=== PATIENT | male | born 1985 | race African-American/Black ===

== ENCOUNTER 2016-08-19 18:29 | Inpatient (IN) | payer MEDICARE, OTHER ==
--- NOTE | ~2016-08-19 | EKG ---
PATIENT: JOSE L ACOSTA UNIT #: [id number] Ventricular Rate: 94 BPM Atrial Rate: 94 BPM P-R Interval: 144 ms QRS Duration: 84 ms Q-T Interval: 322 ms QTC Calculation(Bezet): 402 ms P [place]: 32 degrees Calculated R [place]: 3 degrees Calculated T [place]: 53 degrees Diagnosis Line: Normal sinus rhythm Diagnosis Line: Normal ECG Diagnosis Line: When compared with ECG of 20-AUG-2016 08:36, Diagnosis Line: Questionable change in QRS axis Diagnosis Line: Non-specific change in ST segment in Inferior Diagnosis Line: leads Diagnosis Line: T wave inversion no longer evident in Inferior Diagnosis Line: leads Diagnosis Line: Confirmed by JOHN AGUILAR MD ([id number]) on 08/22/2016 Diagnosis Line: 7:04:28 PM INTERPRETING MD: JEFF GARCIA
--- NOTE | ~2016-08-19 | EE ---
Unit #: [id number] #: [id number] Patient: JOSE L ACOSTA [id number] [address] [address] [id number] I MR#: [id number] NAME: JOSE L ACOSTA : 1985 SEX: M STUDY DATE/TIME: 08/20/2016 UNIT: C3A PCU ROOM: [address] [place] [address] DESCRIPTION: EEG Attending Physician: Jenna Carson M.D. Referring Physician: Meri Reynolds M.D. Primary Care Physician: No Primary Care Physician NEURODIAGNOSTICS REPORT EXAM EEG REASON FOR THE STUDY Seizures. EEG DESCRIPTION This is an inpatient, digitally recorded, multi-montage adult EEG with leads placed according to the International 10-20 system. Hyperventilation and photic stimulation were attempted. With the patient fully aroused there is 9 to 10 Hz posterior dominant alpha rhythm which is symmetric and attenuates with eyes opening. The patient did become drowsy and later on stage 2 sleep was seen. No clearcut interictal discharges or clinical events were seen. IMPRESSION This is essentially a normal adult awake and asleep EEG. An EEG like this does not rule out epilepsy. Clinical correlation is recommended. Dictated by... Alysia Agarwal/tiffanie TD: 08/20/2016 22:56 JOB #: [id number] NEURODIAGNOSTICS REPORT Page 1 of 1 X Meri Reynolds MD NEURODIAGNOSTICS REPORT
--- NOTE | ~2016-08-19 | CR72 ---
[facility] A Service of [facility] RADIOLOGY TEXT RESULTS PATIENT: JOSE L ACOSTA LOCATION: [facility] 36611-07 : 83 UNIT #: [id number] AGE: [address]: Jenna Carson MD SEX: M ORDER DR: [id number] [facility] [address] [place], [place] [address] [id number] E MR#: [id number] Acc #: [id number] NAME: JOSE L ACOSTA : 1985 SEX: M STUDY DATE/TIME: 08/19/2016 18:26 UNIT: [facility] ROOM: STUDY DESCRIPTION: CR Chest Single View Portable Attending Physician: Phu Pascal M.D. Ordering Physician: Ed Delio Allen M.D. Primary Care Physician: Primary Care Physician No MEDICAL IMAGING REPORT This report is preliminary unless electronic signature is present EXAM Portable chest HISTORY Seizure today with weakness. TECHNIQUE Single view of the chest was obtained with no priors available for comparison. FINDINGS Severe kyphoscoliosis is seen with previous thoracic freddy fixation. The lungs are clear. The heart and mediastinum have a normal configuration otherwise, and the vascular pattern is normal. IMPRESSION No active pulmonary disease. Kyphoscoliosis with previous thoracic fusion. Dictated by... Ayan Wood M.D. THIS IS AN ELECTRONICALLY VERIFIED REPORT Ayan Wood M.D. at 08/20/2016 8:03 AM RLF/carla TD: 08/19/2016 23:46 JOB #: [id number] MEDICAL IMAGING REPORT Page 1 of 1 COPY
--- NOTE | ~2016-08-19 | CO ---
Unit #: [id number] #: [id number] Patient: JOSE L ACOSTA [id number] [facility] [address] [place], [place] [address] [id number] I MR#: [id number] NAME: JOSE L ACOSTA ROOM: 326 Age: 31 Sex: M Admission Date: 08/19/2016 : 1985 Attending Physician: Jenna Carson M.D. Primary Care Physician: No Primary Care Physician Requesting Physician: Naomi Dyer M.D. Consultation Date: 08/20/2016 CONSULTATION REPORT REASON FOR CONSULTATION Seizure. PATIENT IDENTIFICATION This is a 31-year-old, right-handed, -Australian male evaluated in the ER, room T2 at [facility]. SOURCE OF INFORMATION Obtained from the patient, the patient's family via telephone, as well as the medical records. HISTORY OF PRESENT ILLNESS This is a 31-year-old, right-handed, -Australian male with a past medical history of mild MR, intermittent explosive disorder, and hypertension, who presented to [facility] with generalized new onset seizure activity. The patient was apparently at home with his respite care worker whenever he was noted to have a generalized tonic clonic seizure event. He lost continence of urine. He had a tongue bite and was foaming at the mouth. Symptoms apparently resolved on their own and the respite care worker called the patient's caregiver who instructed that EMS be called. The patient was brought to the ER via EMS and was noted in the ER to have another generalized event. Dr. Reynolds was called and the patient was placed on Vimpat. The patient also received a dose of Ativan. The patient has had no further events since his initial event here and again he has had two generalized tonic clonic seizure events, one witnessed at home and one witnessed in the ED. He had a head CT done without contrast in the ED, that shows a 3.6 cm area of hypodensity within the left basal ganglia concerning for an evolving infarct and no evidence of significant mass effect or edema. No hemorrhage. The patient is not complaining of any symptoms of stroke, though at the time of my evaluation he is sleeping and is difficult to arouse. His EKG showed normal sinus rhythm. He takes Klonopin at home and his family states that he takes all of his medications without difficulty and has not had any nausea or vomiting. Does not have any history of pocketing; however, his urine tox screen is negative for benzodiazepine. His urinalysis does show some abnormalities but moderate squamous cells and negative for bacteria. Cultures not indicated. Otherwise his BNP is essentially unremarkable. His glucose was 91 on arrival and his CBC was unremarkable on arrival. PAST MEDICAL HISTORY 1. Hypertension. 2. Mild MR. 3. Intermittent explosive disorder. Unit #: [id number] #: [id number] Patient: JOSE L ACOSTA 4. Scoliosis. 5. Back surgery for scoliosis. ALLERGIES No known drug allergies. HOME MEDICATIONS As per med rec and include: 1. Calcium carbonate 500 mg p.o. t.i.d. 2. Seroquel 200 mg 1 1/2 tablet at noon and 2 1/2 tablets at night. 3. Clonidine 0.1 mg p.o. b.i.d. 4. Vitamin D 1,000 units p.o. daily. 5. Clonazepam 0.5 mg p.o. t.i.d. 6. Carbamazepine 200 mg p.o. b.i.d. FAMILY HISTORY Documented in the medical record as positive for malignancy. The nurse was able to speak with the patient's brother over the phone and he states that his mother is but when she was living she was diagnosed at the age of about 40 with epilepsy. SOCIAL HISTORY The patient lives with a caregiver, his brother, Tye, is his next-of-kin and guardian. He has a caregiver that works in the home and he has respite workers that check on him and help provide care. REVIEW OF SYSTEMS The patient is lethargic, somewhat avoidant upon my evaluation but is appropriate otherwise. He denies any headache currently. He states he is hungry. He denies any complaints upon review of systems otherwise. 14 point review of systems was attempted. PHYSICAL EXAMINATION VITAL SIGNS: Temperature 98.7. He has been afebrile, pulse 98, respirations 20, blood pressure 118/74, blood pressure in the ER on arrival is 143/83, oxygen saturation 98% on room air. Height 5'9", weight 167 pounds, BMI 24. NEUROLOGIC EXAM: He is resting in bed comfortably in no apparent distress. He is sleeping. He is arousable with some difficulty. His family states that this is not unusual for him, that he is a deep sleeper. He, when awake, does follow commands consistently. He can name and identify appropriately. His speech is clear. He can name and identify and does not appear to have any aphasia or apraxia. CRANIAL NERVE EXAM: He responds to threats in the primary and peripheral visual broussard. Eyes are conjugate without ptosis or nystagmus. Extraocular movements are intact. Sensation of the face and scalp appears to be intact but is limited as far as his cooperation on this portion of the exam. Strength of muscles of facial expression appear to be unremarkable and equal. Hearing is intact to voice. Tongue is midline, unable to visualize uvula and palate. Head turning and shoulder shrug are unremarkable. Neck supple. MOTOR EXAM: He demonstrates normal bulk and tone. Strength is equal, 5- out of 5 in the extremities. SENSORY EXAM: It is difficult as the patient is lethargic. GAIT AND ROMBERG: Deferred. REFLEXES: 1 out of 4. Toes are equivocal. COORDINATION: No past pointing. Unit #: [id number] #: [id number] Patient: JOSE L ACOSTA DIAGNOSTIC STUDIES IMAGING STUDIES: CT of the head please see above. Chest x-ray on 08/19/2016 - impression per radiology report, no active pulmonary disease. Kyphoscoliosis with previous thoracic fusion. LABORATORY STUDIES: TSH 0.43, other labs are as per chart and have been reviewed. Please see above for discussion of labs. IMPRESSION 1. New onset generalized seizure x2, questionable etiology. 2. Abnormal CT of the head, questionable involving left basal ganglia infarct, likely incidental. 3. Mild MR. 4. Hypertension. PLAN I was able to speak with C.J. at the number provided. I attempted to call his brother but was unable to reach him. The nurse did speak with the brother and reports he is back to his baseline. He has apparently not missed any of his medication. However, it is interesting to note that his urine tox screen is negative for benzodiazepines and he takes clonazepam 0.5 mg t.i.d. I am told that he has not had any nausea or vomiting, no pocketing of his meds and has not run out of his mediations. Regardless, with two recurrent generalized seizure events with no known etiology, we must treat these as epileptic events and will continue Vimpat, which has been started on the patient. Vimpat is likely a better consideration given his history of intermittent explosive disorder. Will monitor him closely. He has no known prior history of seizures. It is important to note that his mother was diagnosed with epilepsy at the age of 38 to 40. We will follow him closely. Will check an MRI of the brain for seizure and stroke protocol given his abnormal CT and presentation. Will check an MR angiogram of the head and neck. He has been started on aspirin as well. Further recommendations will be made pending workup and further clinical course. I have discussed the case with Dr. Reynolds who has seen the patient as well and presents as above. Dictated by... Rosalia Parada/erlinda TD: 08/21/2016 05:20 JOB #: [id number] CONSULTATION REPORT Page 1 of 1 X Naina Nascimento APRN X CONSULTATION REPORT
--- NOTE | ~2016-08-19 | MR133 ---
[facility] A Service of [facility] & [facility] RADIOLOGY TEXT RESULTS PATIENT: JOSE L ACOSTA LOCATION: [facility] 326-01 : 83 UNIT #: [id number] AGE: [address]: Jenna Carson MD SEX: M ORDER DR: [id number] [facility] [address] [place], [place] [address] [id number] I MR#: [id number] Acc #: [id number] NAME: JOSE L ACOSTA : 1985 SEX: M STUDY DATE/TIME: 08/20/2016 15:07 UNIT: [place] [facility] ROOM: [address]6932 STUDY DESCRIPTION: MR MRA Neck WWo Contrast Attending Physician: Jenna Carson M.D. Ordering Physician: Naina Nascimento A.P.R.N. Primary Care Physician: No Primary Care Physician MRI CENTER REPORT This report is preliminary unless electronic signature is present. EXAM MR angiogram of the neck with and without contrast dated 08/20/2016. COMPARISON MRI and MRA head dated 08/20/2016. HISTORY New onset of seizures on 08/19/2016. Mentally challenged. FINDINGS Source and reconstruction MIP images of the neck arteries were obtained with and without contrast. GFR measured greater than 60. 15 mL of MultiHance was administered intravenously. Three-vessel aortic arch is seen. The bilateral common, internal and external carotid arteries demonstrate expected course, caliber and flow. No focal stenosis, dissection or aneurysm is seen. Bilateral vertebral arteries are codominant. They are grossly unremarkable. IMPRESSION No hemodynamically flow-limiting significant stenosis in bilateral internal carotid artery bulbs per NASCET criteria. These findings were discussed with [place] ER physician Dr. Segura at 04:15 p.m. on 08/20/2016. Dictated by... Kate Caicedo M.D. THIS IS AN ELECTRONICALLY VERIFIED REPORT Kate Caicedo M.D. at 08/22/2016 4:57 PM CPR/rnr TD: 08/20/2016 18:44 JOB #: [id number] [facility] A Service of [facility] & [facility] RADIOLOGY TEXT RESULTS PATIENT: JOSE L ACOSTA LOCATION: A 326-01 : 83 UNIT #: [id number] AGE: [address]: Jenna Carson MD SEX: M ORDER DR: MRI CENTER REPORT Page 1 of 1 COPY
--- NOTE | ~2016-08-19 | MR122 ---
[facility] A Service of [facility] RADIOLOGY TEXT RESULTS PATIENT: JOSE L ACOSTA LOCATION: C3[facility] PC 326-01 : [birth year] UNIT #: [id number] AGE: [address]: Jenna Carson MD SEX: M ORDER DR: [id number] [facility] [address] [place], [place] [address] [id number] I MR#: [id number] Acc #: [id number] NAME: JOSE L ACOSTA : 1985 SEX: M STUDY DATE/TIME: 08/20/2016 14:53 [facility] RO[facility]: 06215 STUDY DESCRIPTION: MR MRA Head Wo Contrast Attending Physician: Jenna Carson M.D. Ordering Physician: Naina Nascimento A.P.R.N. Primary Care Physician: No Primary Care Physician MRI CENTER REPORT This report is preliminary unless electronic signature is present. EXAM MR angiogram of the head without contrast. DATE OF EXAM 08/20/2016 COMPARISON MRA neck and MRI brain dated 08/20/2016. HISTORY Seizure on 08/19/2016, mentally challenged. New onset of seizures. FINDINGS Source and 3-D reconstruction MIP images of the [place] of [place] was obtained without contrast. Bilateral intracranial internal carotid arteries, anterior and middle cerebral arteries are within normal limits. The right PCOM is present. Tiny ACOM cannot be excluded. Well-defined left PCOM is not seen. Basilar artery, bilateral posterior cerebral arteries are unremarkable. The distal right P3 and P4 segments are asymmetrically smaller when compared to the left. Bilateral vertebral arteries decrease in caliber as they extend to the vertebrobasilar junction. No aneurysm or AVM. IMPRESSION 1. No aneurysm or AVM. 2. There is decrease in caliber of bilateral vertebral arteries as they extend towards the vertebrobasilar junction. Given the young age it could be related to a congenital appearance rather than due to atherosclerotic disease. Nonspecific. Dictated by... Kate Caicedo M.D. [facility] A Service of [facility] RADIOLOGY TEXT RESULTS PATIENT: JOSE L ACOSTA LOCATION: C3A PC 326-01 : [birth year] UNIT #: [id number] AGE: [address]: Jenna Carson MD SEX: M ORDER DR: THIS IS AN ELECTRONICALLY VERIFIED REPORT Kate Caicedo M.D. at 08/22/2016 4:57 PM CPR/jt TD: 08/20/2016 18:33 JOB #: [id number] MRI CENTER REPORT Page 1 of 1 COPY
--- NOTE | ~2016-08-19 | MR17 ---
[facility] A Service of [facility] RADIOLOGY TEXT RESULTS PATIENT: JOSE L ACOSTA LOCATION: C3A 326-01 : [birth year] UNIT #: [id number] AGE: [address]: Jenna Carson MD SEX: M ORDER DR: [id number] [facility] [address] [place], [place] [address] [id number] I MR#: [id number] Acc #: [id number] NAME: JOSE L ACOSTA : 1985 SEX: M STUDY DATE/TIME: 08/20/2016 14:24 UNIT: [facility] ROOM: 67320 STUDY DESCRIPTION: MR Brain WWo Contrast Attending Physician: Jenna Carson M.D. Ordering Physician: Naina Nascimento A.P.R.N. Primary Care Physician: No Primary Care Physician MRI CENTER REPORT This report is preliminary unless electronic signature is present. EXAM MRI of the brain, with and without contrast, 08/20/2016. COMPARISON CT head without contrast, 08/19/2016. HISTORY Patient had seizure on 08/19/2016; mentally challenged. Had an abnormality on CT head. TECHNIQUE Multisequence, multiplanar imaging of the brain was obtained with and without contrast. GFR measured greater than 50. 15 mL of MultiHance was administered intravenously. FINDINGS There is no acute stroke, hydrocephalus, midline shift. There is increased T2 signal noted within the left deep mcdowell nucleus. It has a tear-shape and measures 2.4 x 3.8 cm, with focal 3-mm round increased T2 signal lesion within its center. This smaller component has peripheral rim of susceptibility artifact, likely relating to hemosiderin deposition or calcification. It also demonstrates peripheral rim of enhancement. No hydrocephalus or midline shift is seen. There is an oval large CSF signal lesion lateral to the right anterior commissure measuring 1.3 cm. It is probably a large perivascular Virchow-Benjamin space. 1.5-cm enhancing mass is noted in the right parietal bone with some enlargement. No underlying intraparenchymal components. Motion artifact is significantly noted in the postcontrast sequence, and the patient would not complete the study; hence, postcontrast coronal sequence was not obtained. Thick slices through the sella with the pituitary gland, pineal region, upper cervical spine, and internal auditory canals with the inner ear [facility] A Service of [facility] RADIOLOGY TEXT RESULTS PATIENT: JOSE L ACOSTA LOCATION: C3A 326-01 : [birth year] UNIT #: [id number] AGE: [address]: Jenna Carson MD SEX: M ORDER DR: structures do not demonstrate any significant abnormality. There is mild S-shaped nasal septal deviation with mild paranasal sinus mucosal thickening. Imaged orbits with the ocular structures and mastoids are unremarkable. IMPRESSION 1. Corresponding to the CT abnormality, there is an oval area of increased T2 signal in the inferior aspect of the left basal ganglia, abutting the anterior commissure anteriorly and involving genu and posterior limb of the left internal capsule. Superiorly, it extends toward the left frontal sanchez radiata. It has a focal 3-mm component within its center, with likely peripheral calcification or hemosiderin deposition with mild peripheral rim of enhancement. There is no restricted diffusion noted with it. It does not have the typical appearance of an acute stroke. Given the appearance of hemorrhage in the center, a vascular anomaly like cavernous hemangioma, with edema and hemorrhage, is in the differential consideration, along with other hemorrhagic small mass lesions. It does not have the typical appearance of an infection. Follow-up study is suggested in 1-3 months or earlier, depending on worsening of symptoms. 2. There is an enhancing bony mass noted in the right parietal bone. It has a thick, sclerotic border in CT. Correlation with old imaging or bone scan is suggested. It could represent benign lesion; however, malignant lesions like metastases or multiple myeloma cannot be completely excluded in the appropriate clinical setting. 3. Findings were discussed with Dr. Segura of [facility] ER at 4:15 p.m. on 08/20/2016. Dictated by.Sergio Caicedo M.D. THIS IS AN ELECTRONICALLY VERIFIED REPORT Kate Caicedo M.D. at 08/22/2016 4:57 PM CPR/nicolás TD: 08/20/2016 18:41 JOB #: [id number] MRI CENTER REPORT Page 1 of 1 COPY
--- NOTE | ~2016-08-19 | EKG ---
PATIENT: JOSE L ACOSTA UNIT #: [id number] Ventricular Rate: 94 BPM Atrial Rate: 94 BPM P-R Interval: 146 ms QRS Duration: 90 ms Q-T Interval: 330 ms QTC Calculation(Bezet): 412 ms P [place]: 52 degrees Calculated R [place]: 93 degrees Calculated T [place]: 6 degrees Diagnosis Line: Normal sinus rhythm Diagnosis Line: Rightward axis Diagnosis Line: Pulmonary disease pattern Diagnosis Line: Abnormal ECG Diagnosis Line: When compared with ECG of 19-AUG-2016 18:39, Diagnosis Line: deep s waves in V4-V6 are new Diagnosis Line: Confirmed by JOHN AGUILAR MD ([id number]) on 08/20/2016 Diagnosis Line: 10:41:46 PM INTERPRETING MD: JEFF GARCIA
--- NOTE | ~2016-08-19 | DS ---
Unit #: [id number] #: [id number] Patient: JOSE L ACOSTA [id number] [address] [address] [id number] MR#: [id number] NAME: JOSE L ACOSTA ROOM: 326 Age: 31 Sex: M Admission Date: 08/19/2016 : 1985 Discharge Date: 08/21/2016 Attending Physician: Jenna Carson M.D. Primary Care Physician: No Primary Care Physician DISCHARGE SUMMARY PRINCIPAL DIAGNOSES 1. New onset generalized seizure x2 consistent with underlying epilepsy. 2. Hyperlipidemia, newly diagnosed, with low-density lipoprotein (LDL) of 172. 3. Hypertension. 4. Intermittent explosive disorder. 5. Mental retardation. 6. 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 7. Gastroesophageal reflux disease. CONSULTANTS Dr. Reynolds, neurology. DIAGNOSTIC STUDIES IMAGING: Chest x-ray on August 19, [address] of the head without contrast on August 19, 2016 with a 3.6 cm area of hyperdensity in the left basal ganglia. No mass effect or edema. MRI of the brain with and without contrast on August 20, 2016 with no evidence of acute stroke. There is an oval area of increased T2 signal in the inferior aspect of the left basal ganglia extending toward the left frontal sanchez radiata. It appears to be most consistent with a vascular abnormality. It is not consistent with infection. Bony mass in the right parietal lobe noted. MRA of head and neck without any significant stenosis per NASCET criteria. 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 CLINICAL HISTORY AND HOSPITAL COURSE Mr. Acosta is a 31-year-old male who presented to the emergency department with witnessed seizure. Please refer to H and P for further details. CT scan done in the emergency department revealed questionable left basal ganglia abnormality. The patient did not have any symptoms of stroke, however. The patient was subsequently admitted. The patient was started on empiric Vimpat and has had no further seizure activity during hospitalization. EEG was done and did not reveal any seizure-like activity. I will note the patient is reportedly on Klonopin on a p.r.n. basis; however, urine drug screen was negative. It is unclear to me how often the patient takes Klonopin or if it is even prescribed. However, given 2 events, we are going to treat empirically; particularly given the patient has a family history of epilepsy. The patient will be maintained on Vimpat. Unit #: [id number] #: [id number] Patient: JOSE L ACOSTA Due to abnormal CT scan the patient underwent MRI of the brain but does not reveal any acute stroke. It is felt he likely has a vascular abnormality and can proceed with repeat MRI in 3 months to ensure that this is stable. He was also found to have hyperlipidemia and was placed on statin therapy. The patient has, otherwise, remained clinically stable. He did have complaints of chest pain today but has been eating well. EKG is unremarkable, and troponin is also negative. I suspect chest pain is secondary to reflux. He will be discharged home today. DISCHARGE CONDITION Stable. DISCHARGE STATUS Discharge to home. DISCHARGE MEDICATIONS 1. Vimpat 100 mg b.i.d. 2. Lipitor 40 mg at bedtime. 3. Tegretol 200 mg b.i.d. 4. Seroquel 100 mg at noon and 500 mg at bedtime. 5. Klonopin 0.5 mg p.o. t.i.d. p.r.n. anxiety. 6. Catapres 0.1 mg b.i.d. 7. Tums 500 mg t.i.d. 8. Vitamin D 1,000 units p.o. daily. DISCHARGE INSTRUCTIONS Patient instructed to follow a heart healthy, low-calorie diet. He can increase his activity as tolerated. FOLLOW-UP 1. Patient will follow up with Dr. Huan Soria of outpatient neurology in approximately 4 weeks and can undergo repeat MRI of the brain to ensure stability of presumed vascular lesion. 2. He can follow up with his primary care provider in 4 weeks, as well. Dictated by... Jenna Carson M.D. ALEXANDER/caleb TD: 08/22/2016 07:52 JOB #: [id number] Unit #: [id number] #: [id number] Patient: JOSE L ACOSTA DISCHARGE SUMMARY Page 1 of 1 X Jenna Carson MD X DISCHARGE SUMMARY
--- NOTE | ~2016-08-19 | CT71 ---
[facility] A Service of [facility] RADIOLOGY TEXT RESULTS PATIENT: JOSE L ACOSTA LOCATION: [facility] : 83 UNIT #: [id number] AGE: [address]: Jenna Carson MD SEX: M ORDER DR: [id number] [address] [address] [id number] E MR#: [id number] Acc #: [id number] NAME: JOSE L ACOSTA : 1985 SEX: M STUDY DATE/TIME: 08/19/2016 19:43 UNIT: ANASTASIYA ROOM: STUDY DESCRIPTION: CT Head Wo Contrast Attending Physician: Phu Pascal M.D. Ordering Physician: Steven Allen M.D. Primary Care Physician: Primary Care Physician No MEDICAL IMAGING REPORT This report is preliminary unless electronic signature is present EXAM CT head INDICATIONS Seizure for [address] of the head without contrast. This CT exam was performed with one or more of the following radiation dose reduction techniques: Automatic exposure control, adjustment of mA and/or kV according to patient size, and iterative reconstruction. COMPARISON None available. FINDINGS There is an area of increased hyperdensity within the left basal ganglia measuring 3.6 x 2 cm. There is no associated mass effect or edema. Left lateral ventricle is normal in size and configuration. There is a prominent Virchow-Benjamin space in the right medial temporal lobe. No extraaxial collections. No acute osseous abnormalities. IMPRESSION 1. 3.6 cm area of hyperdensity within the left basal ganglia concerning for a subacute infarct. Consider further evaluation with an MRI to confirm. 2. No evidence of significant mass effect or edema. No hemorrhage. This finding was called to the ER at 20:00 on 08/19/2016. [facility] A Service of [facility] RADIOLOGY TEXT RESULTS PATIENT: JOSE L ACOSTA LOCATION: CEDOF : 83 UNIT #: [id number] AGE: [address]: Jenna Carson MD SEX: M ORDER DR: Dictated by... Edward Saldaña M.D. THIS IS AN ELECTRONICALLY VERIFIED REPORT Edward Saldaña M.D. at 08/20/2016 3:05 PM RPC/carla TD: 08/20/2016 00:40 JOB #: [id number] MEDICAL IMAGING REPORT Page 1 of 1 COPY
--- NOTE | ~2016-08-19 | EKG ---
PATIENT: JOSE L ACOSTA UNIT #: [id number] Ventricular Rate: 84 BPM Atrial Rate: 84 BPM P-R Interval: 158 ms QRS Duration: 92 ms Q-T Interval: 344 ms QTC Calculation(Bezet): 406 ms P Prue: 38 degrees Calculated R Prue: 47 degrees Calculated T Prue: 12 degrees Diagnosis Line: Normal sinus rhythm Diagnosis Line: Normal ECG Diagnosis Line: No previous ECGs available Diagnosis Line: Confirmed by JOHN AGUILAR MD ([id number]) on 08/19/2016 Diagnosis Line: 11:43:34 PM INTERPRETING MD: JEFF GARCIA
--- NOTE | ~2016-08-19 | HP ---
Unit #: [id number] #: [id number] Patient: JOSE L ACOSTA [id number] [address] [address] [id number] E MR#: [id number] NAME: JOSE L ACOSTA ROOM: Age: 31 Sex: M Admission Date: 08/19/2016 : 1985 Attending Physician: Phu Pascal M.D. Primary Care Physician: Primary Care Physician No HISTORY AND PHYSICAL CHIEF COMPLAINT New-onset seizure. HISTORY OF PRESENT ILLNESS This pleasant 31-year-old male with mild mental retardation, intermittent explosive disorder, essential hypertension, is admitted for new-onset seizure. The patient was in his usual state of health until today. After eating, he developed a generalized seizure. He was brought to this emergency department where he was initially a bit confused. In the ER, he had a second witnessed generalized seizure. He was given 2 mg of IV Ativan. The case was discussed with Dr. Reynolds and the patient was given 100 mg of IV Vimpat. His head CT shows a 3.6 cm left basal ganglia abnormality, possibly representing a subacute infarct. The patient is experiencing a headache today after the seizures. Again, no previous history of seizures. The patient does admit to urinating on himself after the seizure. PAST MEDICAL HISTORY 1. Hypertension. 2. Intermittent explosive disorder. 3. Scoliosis. 4. Mild mental retardation. 5. Back surgery. ALLERGIES None. HOME MEDICATIONS 1. Seroquel 200 mg one and one-half tablets at noon. 2. Seroquel 200 mg two and one-half tablets at bedtime. 3. Clonidine 0.1 mg b.i.d. 4. Vitamin D 1000 units daily. 5. Klonopin 0.5 mg t.i.d. 6. Tegretol 200 mg b.i.d. 7. Tums 500 mg t.i.d. p.r.n. SOCIAL HISTORY The patient lives with a caregiver. He is a lifelong nonsmoker. He does not drink alcohol. FAMILY HISTORY Malignancy. Unit #: [id number] #: [id number] Patient: JOSE L ACOSTA REVIEW OF SYSTEMS Difficult to obtain as patient himself does have some mild intellectual deficits. PHYSICAL EXAMINATION VITAL SIGNS: Temperature 98, pulse 115, respirations 16, blood pressure 143/83, O2 saturation 96% on room air. GENERAL: Pleasant, 31-year-old male currently in no acute distress. HEENT: Eyes PERRLA. Extraocular muscles are intact. Pharynx benign. Tongue is somewhat large. NECK: Supple without adenopathy or thyromegaly. CHEST: Clear. HEART: Normal S1, S2 without S3, S4 or murmur. ABDOMEN: Bowel sounds are present. No hepatosplenomegaly, tenderness or masses. EXTREMITIES: Without clubbing, cyanosis, or edema. Pedal pulses are present. NEUROLOGIC: Awake, alert, oriented to person. Cranial nerves are intact. Equal strength throughout. DIAGNOSTIC STUDIES LABORATORY: Hematocrit 43.3, normal white count and platelet count. SMA-12 chloride 98, protein 9.4, normal glucose. Urine toxicology screen positive for TCA. Urinalysis 2+ protein otherwise negative. IMAGING: Head CT left basal ganglia 3.6 cm abnormality which may represent a subacute infarct. Chest x-ray no acute disease. Kyphoscoliosis. CARDIOVASCULAR: EKG normal sinus rhythm rate 84, normal appearing. ASSESSMENT 1. New-onset seizure. Head CT is possibly abnormal. 2. Mild mental retardation. 3. Intermittent explosive disorder. 4. Essential hypertension. 5. Scoliosis requiring surgery. PLAN 1. The case was discussed between the ER physician and Dr. Reynolds. MRI, EEG, Vimpat. 2. Aspirin for now. 3. IV fluids and continue usual medicines. 4. SCDs for DVT prophylaxis. 5. Repeat labs in the morning. Dictated by Naomi Dyer M.D. AML/cs TD: 08/19/2016 23:19 JOB #: [id number] Unit #: [id number] #: [id number] Patient: JOSE L ACOSTA HISTORY AND PHYSICAL Page 1 of 1 X Naomi Dyer MD HISTORY AND PHYSICAL
[2016-08-19 19:02] LABS: BASOPHIL% 0.2 % (0-2.5); EOSINOPHIL% 0.3 % (0.0-7.0); HEMATOCRIT 43.3 % (38.0-50.0); HEMOGLOBIN 14.8 gm/dL (13.0-16.0); LYMPHOCYTE# 1.3 X10e3 (1.0-3.5); LYMPHOCYTE% 20.3 % (17.0-45.0); MEAN CELL VOLUME 87.7 FL (83-96); MEAN CORPUSCULAR HGB CONC 34.2 g/dL (30-36); MEAN PLATELET VOLUME 7.8 FL (6.5-11.5); MONOCYTE# 0.7 X10e3 (0-1.0); NEUTROPHIL# 4.5 X10e3 (1.5-7.1); NEUTROPHIL% 68.2 % (40-75); PLATELET COUNT 246 X10e3 (140-420); RED BLOOD COUNT 4.94 X10e (3.90-5.60); RED CELL DISTRIBUTION WIDTH 13.5 % (11.0-15.5); WHITE BLOOD COUNT 6.6 X10e3 (4.0-10.5)
[2016-08-19 19:06] LABS: DIFF IND NO
[2016-08-19 19:07] LABS: URINE SOURCE CLEAN CATCH
[2016-08-19 19:12] LABS: URINE APPEARANCE CLOUDY; URINE BILIRUBIN NEG (NEG); URINE BLOOD 2+ (NEG); URINE COLOR YELLOW; URINE GLUCOSE NEG (NEG); URINE KETONE NEG (NEG); URINE LEUKOCYTE ESTERASE NEG (NEG); URINE NITRATE NEG (NEG); URINE PROTEIN 2+ (NEG); URINE SPECIFIC GRAVITY 1.016 (1.003-1.035)
[2016-08-19 19:14] LABS: URINE BACTERIA AUWI NEG (NEGATIVE); URINE SQUAMOUS EPITHELIAL CELL MOD /[HPF]; UWBCS1 AUWI 0-2 (0-5)
[2016-08-19] MEDS ORDERED: SEROQUEL PO (19:23)
[2016-08-19] MEDS ORDERED: CATAPRES0.1 MG PO (19:23)
[2016-08-19] MEDS ORDERED: KLONOPIN0.5 MG PO (19:24)
[2016-08-19] MEDS ORDERED: TEGRETOL PO (19:24)
[2016-08-19] MEDS ORDERED: VITAMIN D1000 UNIT PO (19:24)
[2016-08-19] MEDS ORDERED: TUMS500 MG PO (19:25)
[2016-08-19 19:26] LABS: ALBUMIN SERUM 4.8 g/dL (3.5-5.0); BILIRUBIN, DIRECT 0.1 mg/dL (0.0-0.2); BILIRUBIN,INDIRECT 0.6 mg/dL (0.0-0.9); BILIRUBIN,TOTAL 0.7 mg/dL (0.2-2.0); BUN/CREATININE RATIO 11.11; CALCIUM SERUM 9.5 mg/dL (8.4-10.2); CREATININE SERUM 0.9 mg/dL (0.6-1.4); GLOM FILT RATE Estimated 129.6 mL/min (>60); POTASSIUM 3.8 mmol/L (3.5-5.1); PROTEIN TOTAL SERUM 8.4 g/dL (6.0-8.3)
[2016-08-19 19:27] LABS: CULTURE INDICATED? NO
[2016-08-19 19:31] LABS: AMPHETAMINE NEG (NEG); BARBITURATES NEG (NEG); BENZODIAZEPINES NEG (NEG); COCAINE NEG (NEG); MARIJUANA NEG (NEG); OPIATES NEG (NEG); TRICYCLIC ANTIDEPRESSANTS POS (NEG); U METHADONE NEG (NEG)
[2016-08-20 07:01] LABS: BASOPHIL% 0.1 % (0-2.5); EOSINOPHIL% 0.2 % (0.0-7.0); HEMATOCRIT 39.9 % (38.0-50.0); HEMOGLOBIN 13.4 gm/dL (13.0-16.0); LYMPHOCYTE# 2.1 X10e3 (1.0-3.5); LYMPHOCYTE% 35.5 % (17.0-45.0); MEAN CELL VOLUME 88.4 FL (83-96); MEAN CORPUSCULAR HEMOGLOBIN 29.6 PG (28-34); MEAN CORPUSCULAR HGB CONC 33.5 g/dL (30-36); MEAN PLATELET VOLUME 7.7 FL (6.5-11.5); MONOCYTE# 0.6 X10e3 (0-1.0); MONOCYTE% 10.2 % (3.0-12.0); NEUTROPHIL# 3.2 X10e3 (1.5-7.1); PLATELET COUNT 216 X10e3 (140-420); RED BLOOD COUNT 4.51 X10e (3.90-5.60); RED CELL DISTRIBUTION WIDTH 13.5 % (11.0-15.5); WHITE BLOOD COUNT 5.8 X10e3 (4.0-10.5)
[2016-08-20 07:05] LABS: DIFF IND NO
[2016-08-20 07:21] LABS: BUN/CREATININE RATIO 7.5; CALCIUM SERUM 9.1 mg/dL (8.4-10.2); CREATININE SERUM 1.2 mg/dL (0.6-1.4); GLOM FILT RATE Estimated 91.6 mL/min (>60); POTASSIUM 3.6 mmol/L (3.5-5.1); TEGRETOL (CARBAMAZEPINE) 3.6 ug/mL (4.0-12.0)
[2016-08-20 11:03] LABS: CHOLESTEROL 238 mg/dL (0-200); HDL CHOLESTEROL 49 mg/dL (29-75); LDL/HDL RATIO 4 RATIO (0-4); TRIGLYCERIDES 86 mg/dL (10-160)
[2016-08-20 11:04] LABS: LDL CHOLESTEROL 172 mg/dL (-130)
[2016-08-21 13:18] LABS: %MB 0.7 % (0.0-4.0); MB 3.5 ng/ml
[2016-08-21] MEDS ORDERED: LIPITOR40 MG PO (14:00)
[2016-08-21] MEDS ORDERED: VIMPAT100 MG PO (14:00)
== END 2016-08-21 18:09 | disposition home or self-care (01) | DRG 100 ==
LOC: CED 18:29 → CEDOF 22:30 → C3A PCU 08-20 21:44
PROVIDERS: Emergency Medicine; Internal Medicine; Nurse Practitioner
DX: G40.409 Other generalized epilepsy and epileptic syndromes, not intractable, without status epilepticus (principal); Q28.3 Other malformations of cerebral vessels; F70 Mild intellectual disabilities; I10 Essential (primary) hypertension; F63.81 Intermittent explosive disorder; M41.9 Scoliosis, unspecified; E78.5 Hyperlipidemia, unspecified; K21.9 Gastro-esophageal reflux disease without esophagitis
CPT/HCPCS: 36415; 70450; 70544; 70549; 70553; 71010; 80048; 80061; 80076; 80156; 80307; 81003; 82550; 82553; 82947; 83036; 84443; 84484; 85025; 92523-GN; 92610; 93005; 95816; 96374; 97162; 97165; 99285; A9577; C9254; G8978-GP; G8979-GP; G8980-GP; G8987-GO; G8988-GO; G8989-GO; G8996-GN; G8997-GN; G8998-GN; J1815; J2060; J2405